=== PATIENT | female | born 1995 | race Caucasian/White ===

== ENCOUNTER 2020-01-08 13:38 | Outpatient (CLI) | payer BC ==
[2020-01-08] MEDS ORDERED: OMNIPAQUE 350 MG/ML, 100ML BOTTLE ONE (15:37)
== END 2020-01-08 23:59 | disposition home or self-care (01) ==
LOC: RAD 13:38
PROVIDERS: ATTEND Family Medicine
DX: N83.292 Other ovarian cyst, left side (principal)
CPT/HCPCS: 36415; 74177; 84703; Q9967